=== PATIENT | female | born 1970 | race Caucasian/White ===

== ENCOUNTER → 2020-12-25 08:03 | Outpatient (BNVA) | payer MEDICARE, SELFPAY | PROVIDERS: PCP Family Medicine; Referring Provider Family Medicine; Visit Provider Psychiatry & Neurology Neurology | DX: R25.2 Cramp and spasm (principal); D33.4 Benign neoplasm of spinal cord; S24.103D Unspecified injury at T7-T10 level of thoracic spinal cord, subsequent encounter; X58.XXXD Exposure to other specified factors, subsequent encounter; G82.21 Paraplegia, complete; K59.2 Neurogenic bowel, not elsewhere classified; N31.9 Neuromuscular dysfunction of bladder, unspecified; R25.1 Tremor, unspecified; G43.109 Migraine with aura, not intractable, without status migrainosus | CPT/HCPCS: 99215 ==

== ENCOUNTER → 2021-02-13 07:30 | Outpatient (BNVA) | payer MEDICARE, OTHER, SELFPAY | PROVIDERS: PCP Family Medicine; Referring Provider Family Medicine; Visit Provider Psychiatry & Neurology Neurology | DX: G82.21 Paraplegia, complete (principal); S24.103S Unspecified injury at T7-T10 level of thoracic spinal cord, sequela; R25.2 Cramp and spasm; D33.4 Benign neoplasm of spinal cord; K59.2 Neurogenic bowel, not elsewhere classified; N31.9 Neuromuscular dysfunction of bladder, unspecified; R25.1 Tremor, unspecified; G43.109 Migraine with aura, not intractable, without status migrainosus | CPT/HCPCS: 99443 ==

== ENCOUNTER → 2021-07-23 07:16 | Outpatient (BNVA) | payer MEDICARE, SELFPAY | PROVIDERS: PCP Family Medicine; Referring Provider Family Medicine; Visit Provider Psychiatry & Neurology Neurology | DX: R25.2 Cramp and spasm (principal); D33.4 Benign neoplasm of spinal cord; G82.21 Paraplegia, complete; K59.2 Neurogenic bowel, not elsewhere classified; N31.9 Neuromuscular dysfunction of bladder, unspecified; S24.103S Unspecified injury at T7-T10 level of thoracic spinal cord, sequela; R25.1 Tremor, unspecified; G43.109 Migraine with aura, not intractable, without status migrainosus | CPT/HCPCS: 99214 ==